=== PATIENT | female | born 1975 | race Two or more races ===

== ENCOUNTER 2024-01-10 05:33 | Day surgery (SDC) | payer OTHER ==
[2024-01-05 09:37] LABS: HEMATOCRIT 38.6 % (36.0-45.00); HEMOGLOBIN 12.6 g/dL (12.0-15.00); MEAN CELL VOLUME 79.2 fL (80.00-100.00); MEAN CORPUSCULAR HEMOGLOBIN 25.8 pg (27.00-32.0); MEAN CORPUSCULAR HGB CONC 32.6 g/dl (32.0-36.0); PLATELET COUNT 295 K/uL (150-450); RED BLOOD COUNT 4.88 M/uL (4.00-6.00); RED CELL DISTRIBUTION WIDTH 15.2 % (11.5-14.5)
[2024-01-05 10:02] LABS: PH,URINE 6.5 (5.0-8.0); URINE APPEARANCE Clear; URINE BILIRRUBIN Negative (NEGATIVE); URINE BLOOD Negative; URINE COLOR Yellow; URINE GLUCOSE Negative (NEGATIVE); URINE LEUKOCYTE Negative; URINE NITRATE Negative; URINE PROTEIN Negative (NEGATIVE); URINE UROBILINOGEN 0.2 E.U./dl
[2024-01-05 10:03] LABS: INR 0.95; PARTIAL THROMBOPLASTIN TIME 28.5 SECONDS (22.0-34.0)
[2024-01-05 10:03] LABS: URINE BACTERIA 977.7 uL (0.0-1933); URINE EPITHELIAL CELLS 12.5 uL (0.0-38.8); URINE WBC 4.6 uL (0.0-23.2)
[2024-01-05 10:11] LABS: ALBUMIN 3.2 gm/dL (3.4-5.0); BILIRUBIN TOTAL 0.22 mg/dL (0.3-1.2); CALCIUM 8.8 mg/dL (8.5-10.1); CREATININE SERUM 0.62 mg/dL (0.55-1.02); GFR 103.18; GLOBULINA 3.6 G/DL (2.4-3.5); POTASSIUM 4.19 mEq/L (3.5-5.1); TOTAL PROTEIN 6.8 gm/dL (6.4-8.2)
[~2024-01-10] VITALS: Ht 162.6 cm; Wt 126.6 kg
[~2024-01-10 05:33] MED LIST: PROVENTIL HFA6.7 GM; SINGULAIR10 MG PO; WIXELA 100-501 EACH; ZESTRIL10 M1 PO; ZOLOFT100 MG PO
[2024-01-10] MEDS ORDERED: POVIDONE-IODINE 118 ML BOTT TOP ONE (09:24)
[2024-01-10] MEDS ORDERED: ONDANSETRON HCL 2 MG/ML VIAL IV ONE (10:30)
[2024-01-10] MEDS ORDERED: KETOROLAC TROMETHAMINE 30 MG VIAL IV ONE (10:30)
[2024-01-10] MEDS ORDERED: KETOROLAC TROMETHAMINE 30 MG VIAL ONE (11:56)
== END 2024-01-10 14:15 | disposition home or self-care (01) ==
LOC: CIR.AMB 05:33
PROVIDERS: ATTEND Obstetrics & Gynecology
DX: N93.8 Other specified abnormal uterine and vaginal bleeding (principal); N84.0 Polyp of corpus uteri; I10 Essential (primary) hypertension; E66.9 Obesity, unspecified

== ENCOUNTER 2024-06-20 09:45 | Inpatient (IN) | payer OTHER ==
[~2024-06-20] VITALS: Ht 162.6 cm; Wt 123.8 kg
[2024-06-20 10:54] LABS: PH,URINE 5.5 (5.0-8.0); URINE APPEARANCE Clear; URINE BILIRRUBIN Negative (NEGATIVE); URINE BLOOD Negative; URINE COLOR Yellow; URINE GLUCOSE Negative (NEGATIVE); URINE KETONE Negative (NEGATIVE); URINE LEUKOCYTE Negative; URINE NITRATE Negative; URINE PROTEIN Negative (NEGATIVE); URINE UROBILINOGEN 0.2 E.U./dl
[2024-06-20 10:55] LABS: URINE BACTERIA 288.4 uL (0.0-1933); URINE EPITHELIAL CELLS 13.7 uL (0.0-38.8); URINE RBC 12.2 uL (0.0-20.8); URINE WBC 9.4 uL (0.0-23.2)
[2024-06-20 11:43] LABS: HEMATOCRIT 43.8 % (36.0-45.00); HEMOGLOBIN 14.2 g/dL (12.0-15.00); MEAN CELL VOLUME 82.2 fL (80.00-100.00); MEAN CORPUSCULAR HEMOGLOBIN 26.6 pg (27.00-32.0); MEAN CORPUSCULAR HGB CONC 32.4 g/dl (32.0-36.0); PLATELET COUNT 260 K/uL (150-450); RED BLOOD COUNT 5.32 M/uL (4.00-6.00); RED CELL DISTRIBUTION WIDTH 15.6 % (11.5-14.5)
[2024-06-20] MEDS ORDERED: ZESTRIL20 MG PO (11:46)
[2024-06-20] MEDS ORDERED: SERTRALINE HCL25 MG PO (11:47)
[2024-06-20 11:50] VITALS: BP 140/85
[2024-06-20 12:13] LABS: INR 0.95; PARTIAL THROMBOPLASTIN TIME 30.5 SECONDS (22.0-34.0)
[2024-06-20 12:25] LABS: ALBUMIN 3.6 gm/dL (3.4-5.0); BILIRUBIN TOTAL 0.35 mg/dL (0.3-1.2); CALCIUM 9.4 mg/dL (8.5-10.1); CREATININE SERUM 0.66 mg/dL (0.55-1.02); GLOBULINA 3.6 G/DL (2.4-3.5); POTASSIUM 4.31 mEq/L (3.5-5.1); TOTAL PROTEIN 7.2 gm/dL (6.4-8.2)
[2024-06-20 12:30] LABS: PROTHROMBIN TIME 10.4 SECONDS (9.0-11.5)
[2024-06-26] MEDS ORDERED: CEFOXITIN SODIUM 2,000 MG VIAL IV ONE (06:17)
[2024-06-26] MEDS ORDERED: POVIDONE-IODINE 118 ML BOTT TOP ONE (06:17)
[2024-06-26] MEDS ORDERED: PROMETHAZINE HCL 25 MG/ML AMPUL IV SCH (10:26)
[2024-06-26] MEDS ORDERED: MORPHINE SULFATE 4 MG/ML VIAL IV ONE ×2 (10:35→11:40)
[2024-06-26] MEDS ORDERED: PROMETHAZINE HCL 25 MG/ML AMPUL ONE (10:47)
[2024-06-26] MEDS ORDERED: MEPERIDINE HCL/PF 50 MG/ML VIAL IV SCH (12:00)
[2024-06-26 12:50] VITALS: BP 128/75
[2024-06-26 16:53] LABS: HEMATOCRIT 41.7 % (36.0-45.00); HEMOGLOBIN 13.3 g/dL (12.0-15.00); MEAN CELL VOLUME 83.2 fL (80.00-100.00); MEAN CORPUSCULAR HEMOGLOBIN 26.5 pg (27.00-32.0); MEAN CORPUSCULAR HGB CONC 31.9 g/dl (32.0-36.0); PLATELET COUNT 223 K/uL (150-450); RED BLOOD COUNT 5.01 M/uL (4.00-6.00); RED CELL DISTRIBUTION WIDTH 15.9 % (11.5-14.5)
[2024-06-26 17:52] VITALS: BP 145/78
[2024-06-27] VITALS: BP 124/75
[2024-06-27] MEDS ORDERED: POLYETHYLENE GLYCOL 3350 17 GM BLIST.PACK PO SCH (05:00)
[2024-06-27] MEDS ORDERED: SIMETHICONE 125 MG CAPSULE PO SCH (05:00)
[2024-06-27] MEDS ORDERED: IBUprofen 800 MG TABLET PO SCH (06:00)
[2024-06-27 08:00] VITALS: BP 120/75
[2024-06-27] MEDS ORDERED: GABAPENTIN 300 MG CAPSULE PO SCH (09:00)
[2024-06-27] MEDS ORDERED: SERTRALINE HCL 25 MG TABLET PO SCH (09:00)
[2024-06-27] MEDS ORDERED: LISINOPRIL 20 MG TABLET PO SCH (09:00)
[2024-06-27 19:42] VITALS: BP 113/71
[2024-06-28] VITALS: BP 101/66
[2024-06-28] MEDS ORDERED: GABAPENTIN300 MG PO (06:56)
[2024-06-28] MEDS ORDERED: SIMETHICONE125 M1 PO (06:56)
[2024-06-28] MEDS ORDERED: POLY119PG PO (06:56)
[2024-06-28] MEDS ORDERED: IBUPROFEN800 MG PO (06:56)
[2024-06-28] MEDS ORDERED: BACTRIM DS TAB1 EACH PO (06:59)
[2024-06-28 08:00] VITALS: BP 139/79
== END 2024-06-28 11:07 | disposition home or self-care (01) | DRG 743 ==
LOC: EDSTATUS 09:45 → ADM 09:45 → O/R 06-26 05:37 → OB/GYN 06-26 07:00
PROVIDERS: ADMIT Obstetrics & Gynecology; ATTEND Obstetrics & Gynecology
PROC: 0UT70ZZ Resection of Bilateral Fallopian Tubes, Open Approach (ICD-10-PCS; 2024-06-26)
PROC: 0UT90ZZ Resection of Uterus, Open Approach (ICD-10-PCS; principal; 2024-06-26 07:00)
DX: N80.03 Adenomyosis of the uterus (principal); Z20.822 Contact with and (suspected) exposure to COVID-19